=== PATIENT | female | born 2000 | race American Indian/Alaskan Native ===

== ENCOUNTER 2023-06-14 09:43 | Emergency (ER) | payer OTHER ==
[2023-06-14 09:50] VITALS: BP 102/65; PULSE 91; RESP 18; TEMP 98.6; BMI 33.3
[2023-06-14 10:44] LABS: HCG,QUALITATIVE URINE Positive
[2023-06-14 10:46] LABS: EPI CELLS >36 /uL (0-25.1); HYALINE CASTS 2 /uL (0-3.1); PH,URINE 5.5 (5.0-8.0); URINE APPEARANCE CLOUDY; URINE BACTERIA 8337 /uL (0-1359); URINE BILIRUBIN NEGATIVE (NEGATIVE); URINE COLOR YELLOW; URINE GLUCOSE (UA) NEGATIVE (NEGATIVE); URINE KETONE NEGATIVE (NEGATIVE); URINE LEUK ESTERASE 1+ (NEGATIVE); URINE NITRITE NEGATIVE (NEGATIVE); URINE PROTEIN NEGATIVE (NEGATIVE); URINE WBC 201 /uL (0-25.8)
[2023-06-14 10:57] LABS: URINE RBC 71 /uL (0-23.9)
== END 2023-06-14 11:11 | disposition home or self-care (01) ==
LOC: JERFT 09:43
DX: O23.40 Unspecified infection of urinary tract in pregnancy, unspecified trimester (principal); N39.0 Urinary tract infection, site not specified; Z3A.00 Weeks of gestation of pregnancy not specified
CPT/HCPCS: 81003; 84703; 87086; 87186; 99283-25